=== PATIENT | male | born 1995 | race Caucasian/White ===

== ENCOUNTER 2020-12-02 23:26 | Emergency (ER) | payer BC, OTHER ==
--- NOTE | 2020-12-03 00:05 | EDM.PDOC ---
ED HPI GENERAL MEDICAL PROBLEM - General Chief Complaint: Lower Extremity Injury/Pain Stated Complaint: RIGHT FOOT INJURY Time Seen by Provider: 12/02/20 23:40 Source of Information: Reports: Patient History Limitations: Reports: No Limitations - History of Present Illness INITIAL COMMENTS - FREE TEXT/NARRATIVE: Patient presented to the ED because of a right foot injury. A wood pellet fell on top of his right food. He c/o 6/10 pain. Right Foot Pain Score (Numeric/FACES): 3 - Related Data Allergies Allergy/AdvReac Type Severity Reaction Status Date / Time No Known Allergies Allergy Verified 12/03/20 00:13 Past Medical History Cardiovascular History: Reports: Other (See Below) Other Cardiovascular History: borderline hypertension, not currently on medication - Past Surgical History Musculoskeletal Surgical History: Reports: Other (See Below) Other Musculoskeletal Surgeries/Procedures:: back surgery Social & Family History - Caffeine Use Caffeine Use: Reports: Soda - Recreational Drug Use Recreational Drug Use: No Review of Systems - Review of Systems Review Of Systems: See Below Constitutional: Reports: No Symptoms Eyes: Reports: No Symptoms Ears: Reports: No Symptoms Nose: Reports: No Symptoms Mouth/Throat: Reports: No Symptoms Respiratory: Reports: No Symptoms Cardiovascular: Reports: No Symptoms GI/Abdominal: Reports: No Symptoms Genitourinary: Reports: No Symptoms Musculoskeletal: Reports: Foot Pain Skin: Reports: Other (bruising on rt foot) Neurological: Reports: No Symptoms Psychiatric: Reports: No Symptoms ED EXAM, GENERAL - Physical Exam Exam: See Below Exam Limited By: No Limitations General Appearance: Alert, No Apparent Distress Eye Exam: Bilateral Eye: PERRL Ears: Normal External Exam, Normal Canal Nose: Normal Inspection, Normal Mucosa, No Blood Throat/Mouth: Normal Inspection Head: Atraumatic, Normocephalic Neck: Normal Inspection, Supple, Non-Tender, Full Range of Motion Respiratory/Chest: No Respiratory Distress, Lungs Clear, Normal Breath Sounds, No Accessory Muscle Use, Chest Non-Tender Cardiovascular: Normal Peripheral Pulses, Regular Rate, Rhythm, No Edema, No Gallop, No JVD, No Murmur GI/Abdominal: Normal Bowel Sounds, Soft, Non-Tender, No Organomegaly Back Exam: Normal Inspection, Full Range of Motion Extremities: Normal Inspection, Normal Range of Motion, Other (tenderness and bruising-dorsum of rt foot) Course - Vital Signs Text/Narrative:: Xray-negtive Last Recorded V/S: Last Vital Signs Temp 37.6 C 12/02/20 23:33 Pulse 98 12/02/20 23:33 Resp 18 12/02/20 23:33 BP 155/108 H 12/02/20 23:33 Pulse Ox 100 12/02/20 23:33 Departure - Departure Time of Disposition: 00:10 Disposition: Home, Self-Care 01 Condition: Good Clinical Impression: Contusion, Foot injury - Discharge Information Instructions: Foot Contusion, [id number], Crush Injury of the Foot Referrals: PCP,None [Primary Care Provider] - Forms: ED Department Discharge Additional Instructions: Please read discharge instructions on contusion and foot injury Apply ice Take ibuprofen 800 mg with tylenol 1000 mg every 8 hours as needed for paon Follow up as needed Sepsis Event Note (ED) - Evaluation Sepsis Screening Result: No Definite Risk
--- NOTE | 2020-12-03 10:11 | CR ---
INDICATION: Injury, swelling, pain - landed on foot 12/02/20. Pain first metatarsal. RIGHT FOOT: Three views of the right foot were obtained 12/02/20 - no comparison. Soft tissue swelling is noted over the dorsum of the foot at the level of the mid to distal metatarsals and metatarsophalangeal joints. An acute fracture, dislocation, or other significant bone or joint abnormality was not identified. IMPRESSION: Soft tissue swelling. MTDD
== END 2020-12-03 00:13 | disposition home or self-care (01) ==
LOC: FB.ED 23:26
DX: S90.31XA Contusion of right foot, initial encounter (principal); I10 Essential (primary) hypertension; W20.8XXA Other cause of strike by thrown, projected or falling object, initial encounter
CPT/HCPCS: 73630-RT; 99283-25